=== PATIENT | male | born 1985 | race Caucasian/White ===

== ENCOUNTER 2017-05-21 08:58 | Day surgery (SDC) | payer BC ==
[2017-05-20 09:37] VITALS: BMI 39.5
[~2017-05-21 08:58] MED LIST: LACTATED RINGERS 1,000 ML IV SCH
[2017-05-21] MEDS ORDERED: LIDOCAINE 1% 20 ML VIAL (10MG/ML) FOR IV START INTRADERMA ONE (09:13)
[2017-05-21 09:27] VITALS: RESP 16; TEMP 97
[2017-05-21] MEDS ORDERED: PROPOFOL 10 MG/ML 20 ML VIAL IV ONE (09:59)
[2017-05-21] MEDS ORDERED: LIDOCAINE 1% INJ 10MG/ML (20 ML MDV) ONE (09:59)
--- NOTE | 2017-05-21 10:17 | P.PCN ---
Date of Procedure: 05/21/17 Preoperative Diagnosis: Postoperative Diagnosis: Procedure(s) Performed: BRIEF HISTORY: Patient is a 32-year-old pleasant white male, scheduled for an elective colonoscopy as a part of screening for colorectal neoplasia. He does have long-standing history of ulcerative colitis diagnosed in 2003 but had remained in clinical remission. In fact for the last 10 years has not been on any maintenance medications. PROCEDURE PERFORMED: Colonoscopy with biopsy. PREOPERATIVE DIAGNOSIS: Screening for colon cancer/long-standing history of ulcerative colitis. IV sedation per Anesthesia. PROCEDURE: After informed consent was obtained, the patient, was brought into the endoscopy unit. IV sedation was administered by Anesthesia under continuous monitoring. Digital rectal examination was normal. Initially the Olympus CF- 160 flexible video colonoscope was then inserted in the rectum, gradually advanced into the cecum without any difficulty. Careful examination was performed as the scope was gradually being withdrawn. Ileocecal valve and the appendiceal orifice were visualized and appeared normal. Prep was excellent. Mucosa of the cecum, ascending colon, transverse colon, descending colon, sigmoid colon, and rectum appeared normal. Random biopsies were done from different areas of the colon to rule out dysplasia. Retroflexion was performed in the rectum and no lesions were seen. The patient tolerated the procedure well. IMPRESSION: Normal-appearing colon from rectum to cecum with no evidence of active colitis or colorectal neoplasia. RECOMMENDATIONS: Findings of this examination were discussed with the patient as well as his family. He was advised to follow with the biopsy results. If the biopsy does not show any evidence of dysplasia, he can have a repeat colonoscopy in 2-3 years. Implants: Indications for Procedure: Operative Findings: Description of Procedure:
[2017-05-21 10:44] VITALS: BP 104/70; PULSE 78
== END 2017-05-21 11:15 | disposition home or self-care (01) ==
LOC: ORWHC2ENDO 08:58
PROVIDERS: ATTEND Internal Medicine Gastroenterology
DX: Z12.11 Encounter for screening for malignant neoplasm of colon (principal); Z87.19 Personal history of other diseases of the digestive system; Z79.899 Other long term (current) drug therapy
CPT/HCPCS: 88305; J2001; J2704; G0105; 45380

== ENCOUNTER → 2017-08-05 | Outpatient (CLI) | payer BC ==
--- NOTE | 2017-08-05 16:34 | CONS ---
CONSULTATION Consultation note for sleep apnea. PRIMARY CARE PHYSICIAN: Dr. Lima Miranda. 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 The patient has been feeling tired lately and there was a concern of sleep apnea knowing that he snores and he is waking up tired despite averaging around 6-7 hours of sleep. He is going to bed around 11 o'clock and wakes up 4:50 a.m. in the morning. Upon driving back and forth to [place], [place] the patient does not fall asleep in his car nor has he been involved in a motor vehicle accidents because of sleepiness. He seems to be more fatigued and sleepy. His Pelham score is at 3. No recent weight gain. No other cardiovascular disease. No history of head trauma. No history of any recent weight gain. He has maintained his weight. In fact, he has lost some weight over the past 5 years. PAST MEDICAL HISTORY: Meniere disease. PAST SURGICAL HISTORY: Includes sac decompression in addition to a lump removed from the left testicle that turned out to be benign. ALLERGIES: BANANAS. No medication allergies. FAMILY HISTORY: The father has obstructive sleep apnea. He utilizes CPAP therapy. SOCIAL HISTORY: Negative for alcohol. No history of IV drugs. No history of smoking. OUTPATIENT MEDICATIONS: Triamterene 1 tablet a day. REVIEW OF SYSTEMS: 12-point review of system was done. Positive findings are mentioned above in history of present illness. No history of insomnia. No choking or gasping sensation at nighttime. No grinding of the teeth. No sleepwalking. He does wake up with a dry mouth. He has occasional panic attacks. No sleep talking. No sweating. No palpitation. No heartburn. No sexual dysfunction. He has lost around 25-30 pounds since 5 years. PHYSICAL EXAMINATION: BP is 121/78, pulse 92, respirations 16, temperature 98.1, saturation 98% on room air. Weight is 304, height is 6 feet 1 inch. Neck size 17-1/4 of an inch. BMI is 40.1. GENERAL APPEARANCE: Calm, comfortable. HEENT: Negative for JVD. No goiter or neck masses. LUNGS: Clear to auscultation. HEART: Sounds regular rhythm. Normal S1, S2. No S3. No murmurs. ABDOMEN: Soft, nontender. No organomegaly. EXTREMITIES: No edema. No cyanosis or clubbing. IMPRESSION: 1. Obstructive sleep apnea suspected on clinical grounds. Currently under investigation. 2. Chronic fatigue. 3. Limited sleepiness Pelham score is at 3. 4. Overbite. PLAN: Screening polysomnogram will be ordered and will decide other treatment accordingly. TWAN / NEELAMN: [id number] /
== END | disposition home or self-care (01) ==
LOC: SLEEP 14:06
PROVIDERS: ATTEND Internal Medicine Critical Care Medicine
DX: R06.83 Snoring (principal); R53.82 Chronic fatigue, unspecified; M26.29 Other anomalies of dental arch relationship
CPT/HCPCS: 99211

== ENCOUNTER → 2018-02-03 | Outpatient (CLI) | payer BC ==
--- NOTE | 2018-02-03 17:45 | PN ---
PROGRESS NOTE Homero is 32, seeing me in followup for a compliancy check regarding his obstructive sleep apnea. He was diagnosed having severe REMA with an AHI of 38. I noted that the patient is unable to achieve good compliance on the CPAP machine. He tells that he keeps to pull off the machine and mask throughout the night. He is averaging around 3.1 hours of CPAP use per night. His CPAP use for more than 4 hours is 3 out of 30. Leak factor 25 L/minute and the AHI while treatment down to 2.4 and he is using his Mirage FX nose mask. Unable to tolerate full face mask. Unable to tolerate the nose pillows. BP is 116/64, pulse 94, respirations 16, temperature 98.1, weight is 305. General appearance is calm comfortable. Head is atraumatic, normocephalic. Neck is short, supple. No goiter. No neck masses. Lungs diminished otherwise clear. Heart sounds are regular rate and rhythm. Normal S1, S2. No S3. No murmurs. Abdomen is soft, nontender. No organomegaly. EXTREMITIES: No edema. No cyanosis or clubbing. SKIN: Negative for any wounds or ulceration. IMPRESSION: 1. Symptomatic obstructive sleep apnea with an AHI of 38. 2. Chronic fatigue and sleepiness. 3. Obesity, BMI of 40. 4. Overbite. PLAN: 1. Provide the patient AirFit N20 large size nose mask. 2. Improved compliancy. 3. Weight loss. 4. See me back in 6-8 weeks time in follow up. MMNAHOMI / IJN: [id number] /
== END | disposition home or self-care (01) ==
LOC: SLEEP 13:39
PROVIDERS: ATTEND Internal Medicine Critical Care Medicine
DX: G47.33 Obstructive sleep apnea (adult) (pediatric) (principal); R53.83 Other fatigue; E66.9 Obesity, unspecified; M26.29 Other anomalies of dental arch relationship; Z68.41 Body mass index [BMI] 40.0-44.9, adult; Z99.89 Dependence on other enabling machines and devices

== ENCOUNTER → 2018-05-27 | Outpatient (CLI) | payer BC ==
--- NOTE | 2018-05-27 16:39 | PN ---
PROGRESS NOTE This patient is coming in for a compliancy check. During his last presentation approximately 3 months ago I made some adjustments. I gave him the AirFit N20 nose mask and I also asked him to be more committed to CPAP therapy knowing that the patient has severe obstructive sleep apnea and his AHI is 38. On today's evaluation, the patient is feeling better. His compliance is improved. His clinical response is improved. He is waking up much more refreshed and alert during the day. The snoring is completely subsided. The patient seems to be looking much better. He is averaging about 4.9 hours of CPAP use per night and his compliance data that shows that the patient has been utilizing his CPAP more than 4 hours approximately 70% of the time. Leak factor is 28 L per minute, AHI while on treatment is down to 2.3. He has lost 3 pounds. He goes to bed around 11 o'clock, wakes up 5 in the morning and he needs to put more number of hours of sleep as the patient may have an underlying component of insufficient sleep syndrome. PHYSICAL EXAMINATION: BP is 106/63, pulse 90, respirations 16, temperature is 97, saturation 99% on room air. Weight is 301, height is 6 feet 1 inch. Beattie score 6, BMI 39.4. GENERAL APPEARANCE: Calm, comfortable. Head is atraumatic, normocephalic. NECK: Supple. There is no JVD. No goiter or neck masses. LUNGS: Clear to auscultation. HEART: Sounds regular rhythm. Normal S1, S2. No S3. No murmurs. ABDOMEN: Soft, nontender. No organomegaly. EXTREMITIES: No edema. No cyanosis or clubbing. SKIN: Negative for any wounds or ulceration. IMPRESSION: 1. Symptomatic obstructive sleep apnea, AHI of 38 currently on CPAP pressure of 7 cm of water. The patient is demonstrating good clinical response and compliance. Clinically improved. The patient's compliance data also showed marked improvement in his average number of hours of CPAP use. 2. Hypersomnia, improved. 3. Sleepiness improved. 4. Obesity with a body mass index of 40, trying to lose weight. 5. Overbite. PLAN: 1. Continue CPAP therapy at same level of pressure. 2. Encourage weight loss. 3. Treatment is successful compliance data is improved. Will see back in a year's time or earlier if needed. MMODL / IJN: [id number] /
== END | disposition home or self-care (01) ==
LOC: SLEEP 15:50
PROVIDERS: ATTEND Internal Medicine Critical Care Medicine
DX: G47.33 Obstructive sleep apnea (adult) (pediatric) (principal); E66.9 Obesity, unspecified; M26.29 Other anomalies of dental arch relationship; Z68.41 Body mass index [BMI] 40.0-44.9, adult; Z99.89 Dependence on other enabling machines and devices

== ENCOUNTER 2025-03-04 11:04 | Emergency (ER) | payer BC ==
[2025-03-04 11:30] VITALS: RESP 18; TEMP 98.1
--- NOTE | 2025-03-04 11:31 | ED ---
GI Bleed HPI - General Source: patient, RN notes reviewed Mode of arrival: ambulatory Limitations: no limitations <Seymour Anaya - Last Filed: 03/04/25 11:29> <Easton Gallo - Last Filed: 03/04/25 14:21> - General Stated complaint: blood in stool Time Seen by Provider: 03/04/25 11:19 - History of Present Illness Initial comments: Quick note: This is a 40-year-old male with history of ulcerative colitis (20 years ago) presenting for blood in stool x 3 days. Patient states he has had both bright red and dark blood in the toilet, noting there has been "a lot" of blood. States stools otherwise been solid and denies associated abdominal pain or pain with defecation. (Seymour Anaya) This is a 40-year-old male with a past medical history significant for ulcerative colitis. Patient states he had some bleeding over the last few days has been maroon in color and some has been bright red. Patient denies any rectal pain patient has any abdominal pain patient has nausea vomiting diarrhea. Patient states he used to be on medications for ulcerative colitis but he stopped taking them years ago. Patient denies any fever chills (Easton Gallo) - Related Data Home Medications Medication Instructions Recorded Confirmed Triamterene 1 tab PO DAILY 05/20/17 05/21/17 Previous Rx's Medication Instructions Recorded predniSONE [Deltasone] 40 mg PO DAILY #14 tab 03/04/25 Allergies Allergy/AdvReac Type Severity Reaction Status Date / Time No Known Allergies Allergy Verified 03/04/25 11:30 Review of Systems ROS Other: All systems not noted in ROS Statement are negative. <Seymour Anaya - Last Filed: 03/04/25 11:29> ROS Other: All systems not noted in ROS Statement are negative. <Easton Gallo - Last Filed: 03/04/25 14:21> ROS Statement: Those systems with pertinent positive or pertinent negative responses have been documented in the HPI. Past Medical History Additional Past Medical History / Comment(s): hx ulcerative colitis, hx of meniere's dx History of Any Multi-Drug Resistant Organisms: None Reported Past Surgical History: Ear Surgery Additional Past Surgical History / Comment(s): left ear sx r/t meniere's previous colonoscopy Past Anesthesia/Blood Transfusion Reactions: No Reported Reaction Past Psychological History: No Psychological Hx Reported Past Alcohol Use History: Rare Past Drug Use History: None Reported - Past Family History Mother Family Medical History: Cancer <Seymour Anaya - Last Filed: 03/04/25 11:29> General Exam <Seymour Anaya - Last Filed: 03/04/25 11:29> <Easton Gallo - Last Filed: 03/04/25 14:21> - General Exam Comments Initial Comments: Visual Physical Exam Vital signs reviewed General: Well-appearing, nontoxic, no acute distress. Head: Normocephalic, atraumatic Eyes: PERRLA, EOMI ENT: Airway patent Chest: Nonlabored breathing Skin: No visual rash, normal skin tone Neuro: Alert and oriented 3 Musculoskeletal: No gross abnormalities (Seymour Anaya) GENERAL: Patient is well-developed and well-nourished. Patient is nontoxic and well- hydrated and is in mild distress. ENT: Neck is soft and supple. No significant lymphadenopathy is noted. Oropharynx is clear. Moist mucous membranes. Neck has full range of motion without eliciting any pain. EYES: The sclera were anicteric and conjunctiva were pink and moist. Extraocular movements were intact and pupils were equal round and reactive to light. Eyelids were unremarkable. PULMONARY: Unlabored respirations. Good breath sounds bilaterally. No audible rales rhonchi or wheezing was noted. CARDIOVASCULAR: There is a regular rate and rhythm without any murmurs gallops or rubs. ABDOMEN: Soft and nontender with normal bowel sounds. SKIN: Skin is clear with no lesions or rashes and otherwise unremarkable. NEUROLOGIC: Patient is alert and oriented x3. Cranial nerves II through XII are grossly intact. Motor and sensory are also intact. Normal speech, volume and content. Symmetrical smile. MUSCULOSKELETAL: Normal extremities with adequate strength and full range of motion. LYMPHATICS: No significant lymphadenopathy is noted PSYCHIATRIC: Normal psychiatric evaluation. (Easton Gallo) Course Vital Signs 03/04/25 11:25 Temperature 98.1 F Pulse Rate 98 Respiratory 18 Rate Blood Pressure 114/81 O2 Sat by Pulse 97 Oximetry Medical Decision Making <Seymour Anaya - Last Filed: 03/04/25 11:29> - Lab Data Result diagrams: 03/04/25 12:34 03/04/25 12:34 <Easton Gallo - Last Filed: 03/04/25 14:21> - Medical Decision Making I completed the quick note portion of this chart signed ANGEL Sherwood (Seymour Anaya) Was pt. sent in by a medical professional or institution (ASHLEY Mascorro, [employer], urgent care, hospital, or group home...) When possible be specific @ -No Did you speak to anyone other than the patient for history (EMS, parent, family, police, friend...)? What history was obtained from this source @ -No Did you review nursing and triage notes (agree or disagree)? Why? @ -I reviewed and agree with nursing and triage notes Were old charts reviewed (outside hosp., previous admission, EMS record, old EKG, old radiological studies, urgent care reports/EKG's, group home records)? Report findings @ -No old charts were reviewed Differential Diagnosis? @ -Differential GI Bleed: Esophageal varices, aortoenteric fistula, Mansi-Kapoor, gastritis, peptic ulcer disease, diverticulosis, inflammatory bowel disease, hemorrhoids, fissure, colitis, malignancy, Meckel's diverticulum, this is not meant to be an all- inclusive list. EKG interpreted by me (3pts min.). @ -As above X-rays interpreted by me (1pt min.). @ -None done CT interpreted by me (1pt min.). @ -None done U/S interpreted by me (1pt. min.). @ -None done What testing was considered but not performed or refused? (CT, X-rays, U/S, labs)? Why? @ -None What meds were considered but not given or refused? Why? @ -None Did you discuss the management of the patient with other professionals (professionals i.e. ASHLEY Mascorro, [employer], lab, RT, psych nurse, dialysis social worker, a&p mechanic, teacher, delinquency prevention officer, housing case manager)? Give summary @ -No Was smoking cessation discussed for >3mins.? @ -No Was critical care preformed (if so, how long)? @ -No Were there social determinants of health that impacted care today? How? (Homelessness, low income, unemployed, alcoholism, drug addiction, transportation, low edu. Level, literacy, decrease access to med. care, alf, rehab)? @ -No Was there de-escalation of care discussed even if they declined (Discuss DNR or withdrawal of care, Hospice)? DNR status @ -No What co-morbidities impacted this encounter? (DM, HTN, Smoking, COPD, CAD, Cancer, CVA, ARF, Chemo, Hep., AIDS, mental health diagnosis, sleep apnea, morbi d obesity)? @ -None Was patient admitted / discharged? Hospital course, mention meds given and route , prescriptions, significant lab abnormalities, going to OR and other pertinent info. @ -Patient's hemoglobin came back within normal limits. Patient will follow-up with a GI specialist or surgeon. Patient will be given prednisone for his ulcerative colitis Undiagnosed new problem with uncertain prognosis? @ -No Drug Therapy requiring intensive monitoring for toxicity (Heparin, Nitro, Insulin, Cardizem)? @ -No Were any procedures done? @ -No Diagnosis/symptom? @ -GI bleed with history of also of colitis Acute, or Chronic, or Acute on Chronic? @ -Acute Uncomplicated (without systemic symptoms) or Complicated (systemic symptoms)? @ -Uncommon Side effects of treatment? @ -No Exacerbation, Progression, or Severe Exacerbation? @ -No Poses a threat to life or bodily function? How? (Chest pain, USA, VA, pneumonia, PE, COPD, DKA, ARF, appy, cholecystitis, CVA, Diverticulitis, Homicidal, Suicid al, threat to staff... and all critical care pts) @ -No (Easton Gallo) - Lab Data Lab Results 03/04/25 03/04/25 03/04/25 Range/Units 12:34 12:34 12:34 WBC 9.37 (4.50-10.00) 10*3/uL RBC 5.17 (4.40-5.60) 10*6/uL Hgb 16.5 (13.0-17.0) g/dL Hct 46.4 (39.6-50.0) % MCV 89.7 (80.0-97.0) fL MCH 31.9 (27.0-32.0) pg MCHC 35.6 (32.0-37.0) g/dL Plt Count 284 (140-440) 10*3/uL MPV 8.8 L (9.5-12.2) fL Immature Gran % (Auto) 0.6 % Neutrophils % 58.1 % Lymphocytes % 31.5 % Monocytes % 7.3 % Eosinophils % 2.1 % Basophils % 0.4 % Immature Gran # 0.06 H (0.00-0.04) 10*3/uL Neutrophils # 5.44 (1.80-7.70) 10*3/uL Lymphocytes # 2.95 (0.90-5.00) 10*3/uL Monocytes # 0.68 (0.20-1.00) 10*3/uL Eosinophils # 0.20 (0.04-0.35) 10*3/uL Basophils # 0.04 (0.00-0.10) 10*3/uL PT 11.0 (10.0-12.5) sec INR 1.0 (<1.2) APTT 23.2 (22.0-30.0) sec Sodium 137 (137-145) mmol/L Potassium 3.9 (3.5-5.1) mmol/L Chloride 97 L (98-107) mmol/L Carbon Dioxide 26 (22-30) mmol/L Anion Gap 14 mmol/L BUN 15 (9-20) mg/dL Creatinine 0.91 (0.66-1.25) mg/dL Est GFR (CKD-EPI)AfAm >90 (>60 ml/min/1.73 sqM) Est GFR (CKD-EPI)NonAf >90 (>60 ml/min/1.73 sqM) Glucose 95 (74-99) mg/dL Calcium 9.4 (8.4-10.2) mg/dL Total Bilirubin 1.0 (0.2-1.3) mg/dL AST 59 (17-59) U/L ALT 104 H (4-49) U/L Alkaline Phosphatase 90 (38-126) U/L Total Protein 7.2 (6.3-8.2) g/dL Albumin 4.5 (3.5-5.0) g/dL Disposition <Seymour Anaya - Last Filed: 03/04/25 11:29> Is patient prescribed a controlled substance at d/c from ED?: No Time of Disposition: 14:18 <Easton Gallo - Last Filed: 03/04/25 14:21> Clinical Impression: GI bleed, History of ulcerative colitis Disposition: HOME SELF-CARE Condition: Good Instructions (If sedation given, give patient instructions): Gastrointestinal Bleeding (ED), Ulcerative Colitis (ED) Additional Instructions: Patient should follow-up with a GI doctor Prescriptions: predniSONE [Deltasone] 40 mg PO DAILY #14 tab Referrals: Lima Miranda MD [Primary Care Provider] - 1-2 days Ashley Gill MD [STAFF PHYSICIAN] - 1-2 days Kevin Jules DO [Doctor of Osteopathic Medicine] - 1-2 days
[2025-03-04 12:54] LABS: Basophils # (A) 0.04 10*3/uL (0.00-0.10); Basophils % (A) 0.4 %; Eosinophils % (A) 2.1 %; HCT 46.4 % (39.6-50.0); HGB 16.5 g/dL (13.0-17.0); Lymphocytes # (A) 2.95 10*3/uL (0.90-5.00); Lymphocytes % (A) 31.5 %; MCH 31.9 pg (27.0-32.0); MCHC 35.6 g/dL (32.0-37.0); MCV 89.7 fL (80.0-97.0); Mean Platelet Volume 8.8 fL (9.5-12.2); Monocytes # (A) 0.68 10*3/uL (0.20-1.00); Monocytes % (A) 7.3 %; Neutrophils # (A) 5.44 10*3/uL (1.80-7.70); Neutrophils % (A) 58.1 %; Platelet Count 284 10*3/uL (140-440); RBC 5.17 10*6/uL (4.40-5.60); RDW 12.3 % (11.5-14.5); WBC 9.37 10*3/uL (4.50-10.00)
[2025-03-04 13:04] LABS: Partial Thromboplastin Time 23.2 sec (22.0-30.0)
[2025-03-04 13:09] LABS: ALT 104 U/L (4-49); African American GFR (CKD) >90 (>60 ml/min/1.73 sqM); Albumin 4.5 g/dL (3.5-5.0); Anion Gap 14 mmol/L; Blood Urea Nitrogen 15 mg/dL (9-20); Calcium 9.4 mg/dL (8.4-10.2); Carbon Dioxide 26 mmol/L (22-30); Chloride 97 mmol/L (98-107); Glucose 95 mg/dL (74-99); Non-African American GFR(CKD) >90 (>60 ml/min/1.73 sqM); Sodium 137 mmol/L (137-145); Total Protein 7.2 g/dL (6.3-8.2)
[2025-03-04 13:20] LABS: AST 59 U/L (17-59); Potassium 3.9 mmol/L (3.5-5.1)
[2025-03-04 13:21] LABS: Alkaline Phosphatase 90 U/L (38-126)
[2025-03-04 14:29] VITALS: BP 115/76; PULSE 90
== END 2025-03-04 14:26 | disposition home or self-care (01) ==
LOC: EC 11:04
DX: K92.1 Melena (principal); Z87.19 Personal history of other diseases of the digestive system
CPT/HCPCS: 36415; 80053; 85025; 85610; 85730; 99284